=== PATIENT | female | born 1965 | race Caucasian/White ===

== ENCOUNTER 2018-09-13 04:02 | Inpatient (IN) | payer OTHER ==
[~2018-09-13] VITALS: Ht 165.1 cm; Wt 87.1 kg
[2018-09-13 06:03] LABS: PLATELET COUNT 216 x10^3mcL (130-400)
[2018-09-13 06:06] LABS: RED CELL DISTRIBUTION WIDTH 14.6 % (11.5-14.5)
[2018-09-13] MEDS ORDERED: GOOD SENSE ASP325 MG PO (06:06)
[2018-09-13] MEDS ORDERED: NOR10T (06:07)
[2018-09-13] MEDS ORDERED: SOMA350 MG (06:07)
[2018-09-13 06:26] LABS: CALCIUM 8.6 mg/dL (8.5-10.1); CARBON DIOXIDE 25.6 mmol/L (21-32); CHLORIDE SERUM 111 mmol/L (98-107); CREATININE SERUM 0.8 mg/dL (0.6-1.0); GFR1 > 60 mL/min; GLUCOSE SERUM 97 mg/dL (74-106); SODIUM SERUM 143 mmol/L (136-145)
[2018-09-13 06:30] LABS: ALKALINE PHOSPHATASE 83 U/L (46-116); ALT/SGPT 39 U/L (14-59); AST/SGOT 26 U/L (15-37); BILIRUBIN TOTAL 0.33 mg/dL (0.20-1.00); TOTAL PROTEIN, SERUM 6.9 g/dL (6.4-8.2)
[2018-09-13 06:34] LABS: ALBUMIN 3.2 g/dL (3.4-5.0)
[2018-09-13 09:58] VITALS: BP 115/74
[2018-09-13 10:04] LABS: MAGNESIUM 1.8 mg/dL (1.8-2.4)
[2018-09-13 10:16] LABS: FREE T4 1.07 ng/dL (0.76-1.46); FREE THYROXINE INDEX 2.7 ug/dL (1.4-4.5); T3 TOTAL 1.27 ng/mL; T4(THYROXINE) 8.2 ug/dL (4.7-13.3)
[2018-09-13 12:10] VITALS: Ht 165.1 cm; Wt 87.1 kg
[2018-09-13 13:25] VITALS: BP 104/65
[2018-09-13 17:10] VITALS: BP 115/76
[2018-09-13 17:36] LABS: microscopic required? NO
[2018-09-13 17:45] LABS: UA SPECIFIC GRAVITY >=1.030 (1.005-1.035); urine erythrocyte NEGATIVE (NEGATIVE)
[2018-09-13 17:55] LABS: AMPHETAMINE QUAL UR NONE DETECTED (See below)
[2018-09-13 21:33] VITALS: BP 112/74
[2018-09-14 05:27] VITALS: BP 101/71
[2018-09-14 07:55] LABS: BASOPHIL % 0.6 % (0-2); PLATELET COUNT 219 x10^3mcL (130-400)
[2018-09-14 08:38] LABS: CALCIUM 9.1 mg/dL (8.5-10.1); CARBON DIOXIDE 26.8 mmol/L (21-32); CHLORIDE SERUM 109 mmol/L (98-107); GFR1 > 60 mL/min; GLUCOSE SERUM 109 mg/dL (74-106); POTASSIUM SERUM 4.2 mmol/L (3.5-5.1); SODIUM SERUM 140 mmol/L (136-145)
[2018-09-14 09:09] VITALS: BP 118/59
[2018-09-14 09:09] LABS: RED CELL DISTRIBUTION WIDTH 15.1 % (11.5-14.5)
[2018-09-14 12:48] VITALS: BP 139/74
[2018-09-14 16:38] VITALS: BP 131/68
[2018-09-14 20:35] VITALS: BP 125/78
[2018-09-15 05:06] VITALS: BP 124/85
[2018-09-15 06:34] LABS: PLATELET COUNT 231 x10^3mcL (130-400); RED CELL DISTRIBUTION WIDTH 14.5 % (11.5-14.5)
[2018-09-15 07:21] LABS: CALCIUM 8.7 mg/dL (8.5-10.1); CARBON DIOXIDE 26.4 mmol/L (21-32); CHLORIDE SERUM 108 mmol/L (98-107); CREATININE SERUM 0.8 mg/dL (0.6-1.0); GFR1 > 60 mL/min; GLUCOSE SERUM 120 mg/dL (74-106); POTASSIUM SERUM 5.1 mmol/L (3.5-5.1); SODIUM SERUM 141 mmol/L (136-145)
[2018-09-15 08:31] VITALS: BP 128/90
[2018-09-15 12:56] LABS: ATYPICAL LYMPH 1 %; BAND NEUTROPHIL 1 % (0-10); BASOPHIL 0 % (0-2); MONOCYTE 2 % (0-7); SEGMENTED NEUTROPHILS 94 % (37-75)
[2018-09-15 12:57] LABS: PLATELET MORPHOLOGY PLATELETS DECREASED; rbc morphology (normal/abnorm) NORMAL (NORMAL)
[2018-09-15 14:06] VITALS: BP 128/90
== END 2018-09-15 15:24 | disposition home or self-care (01) | DRG 198 ==
LOC: ED 04:02 → DU 07:59
PROVIDERS: Emergency Medicine; Family Medicine
DX: I24.9 Acute ischemic heart disease, unspecified (principal); I27.20 Pulmonary hypertension, unspecified; I42.9 Cardiomyopathy, unspecified; E44.1 Mild protein-calorie malnutrition; E66.01 Morbid (severe) obesity due to excess calories; I36.1 Nonrheumatic tricuspid (valve) insufficiency; K80.20 Calculus of gallbladder without cholecystitis without obstruction; G47.33 Obstructive sleep apnea (adult) (pediatric); J44.9 Chronic obstructive pulmonary disease, unspecified; G89.4 Chronic pain syndrome; F15.21 Other stimulant dependence, in remission; F14.21 Cocaine dependence, in remission; Z96.642 Presence of left artificial hip joint; Z68.34 Body mass index [BMI] 34.0-34.9, adult; F17.210 Nicotine dependence, cigarettes, uncomplicated; Z86.718 Personal history of other venous thrombosis and embolism
CPT/HCPCS: 83880; 84439; 85378; A9500; J1644; J2270; J2785; J2930; Q0163; Q9967

== ENCOUNTER 2018-10-31 21:36 | Emergency (ER) | payer OTHER ==
[~2018-10-31 21:36] MED LIST: GOOD SENSE ASP325 MG PO; NOR10T; SOMA350 MG
== END 2018-10-31 22:59 | disposition left against medical advice (07) ==
LOC: ED 21:36
DX: Z53.21 Procedure and treatment not carried out due to patient leaving prior to being seen by health care provider (principal)

== ENCOUNTER 2018-11-01 12:56 | Emergency (ER) | payer OTHER ==
[~2018-11-01] VITALS: Ht 165.1 cm; Wt 88.0 kg
[2018-11-01 13:12] VITALS: Ht 165.1 cm; Wt 88.0 kg
[2018-11-01 16:16] VITALS: BP 155/73
== END 2018-11-01 16:16 | disposition home or self-care (01) ==
LOC: ED 12:56
DX: S05.02XA Injury of conjunctiva and corneal abrasion without foreign body, left eye, initial encounter (principal); I10 Essential (primary) hypertension; Z98.890 Other specified postprocedural states; Z91.040 Latex allergy status; W50.4XXA Accidental scratch by another person, initial encounter; Y93.89 Activity, other specified; Y92.89 Other specified places as the place of occurrence of the external cause; Y99.8 Other external cause status

== ENCOUNTER 2018-11-08 15:26 | Emergency (ER) | payer OTHER ==
[~2018-11-08] VITALS: Ht 165.1 cm; Wt 86.2 kg
[2018-11-08 15:29] VITALS: Ht 165.1 cm; Wt 86.2 kg
[2018-11-08 16:24] VITALS: BP 140/94
== END 2018-11-08 16:24 | disposition home or self-care (01) ==
LOC: ED 15:26
DX: F10.129 Alcohol abuse with intoxication, unspecified (principal); F17.200 Nicotine dependence, unspecified, uncomplicated; I27.20 Pulmonary hypertension, unspecified; I10 Essential (primary) hypertension; Z71.6 Tobacco abuse counseling; Z98.890 Other specified postprocedural states
CPT/HCPCS: 99406

== ENCOUNTER 2018-12-29 18:55 | Emergency (ER) | payer OTHER | END 2018-12-29 19:55 | disposition left against medical advice (07) | LOC: ED 18:55 | DX: Z53.21 Procedure and treatment not carried out due to patient leaving prior to being seen by health care provider (principal) ==

== ENCOUNTER 2019-09-16 16:36 | Inpatient (IN) | payer MEDICAID ==
[~2019-09-16] VITALS: Ht 167.6 cm; Wt 78.5 kg
[2019-09-16 18:02] LABS: BASOPHIL % 0.8 % (0-2); PLATELET COUNT 187 x10^3mcL (130-400); RED CELL DISTRIBUTION WIDTH 14.5 % (11.5-14.5)
[2019-09-16 18:21] LABS: ALBUMIN 3.7 g/dL (3.4-5.0); ALKALINE PHOSPHATASE 122 U/L (46-116); ALT/SGPT 50 U/L (14-59); AST/SGOT 59 U/L (15-37); BILIRUBIN TOTAL 0.9 mg/dL (0.20-1.00); CALCIUM 8.4 mg/dL (8.5-10.1); CARBON DIOXIDE 23.2 mmol/L (21-32); CHLORIDE SERUM 106 mmol/L (98-107); CREATININE SERUM 0.8 mg/dL (0.6-1.0); GFR1 > 60 mL/min; GLUCOSE SERUM 98 mg/dL (74-106); POTASSIUM SERUM 4.3 mmol/L (3.5-5.1); SODIUM SERUM 141 mmol/L (136-145)
[2019-09-16] MEDS ORDERED: LASIX20 MG (18:47)
[2019-09-16] MEDS ORDERED: [UNRECOGNIZED DRUG - OTHER] PO (18:47)
[2019-09-16] MEDS ORDERED: LISINOPRIL2.5 MG (18:47)
[2019-09-16 20:16] VITALS: BP 160/95
[2019-09-17 04:06] VITALS: BP 122/92
[2019-09-17 09:01] VITALS: BP 129/85
[2019-09-17 12:26] VITALS: BP 129/92
[2019-09-17 16:30] VITALS: BP 129/85
[2019-09-17 20:49] VITALS: BP 115/85
[2019-09-17 21:22] LABS: microscopic required? NO
[2019-09-17 21:27] LABS: urine erythrocyte NEGATIVE (NEGATIVE)
[2019-09-17 21:37] LABS: AMPHETAMINE QUAL UR NONE DETECTED (See below)
[2019-09-18 04:48] VITALS: BP 116/83
[2019-09-18 06:30] LABS: BASOPHIL % 0.8 % (0-2); PLATELET COUNT 165 x10^3mcL (130-400)
[2019-09-18 06:46] LABS: RED CELL DISTRIBUTION WIDTH 14.6 % (11.5-14.5)
[2019-09-18 06:48] LABS: CALCIUM 8.6 mg/dL (8.5-10.1); CARBON DIOXIDE 29.6 mmol/L (21-32); CHOLESTEROL/HDL RATIO 4.3; CREATININE SERUM 1.4 mg/dL (0.6-1.0); MAGNESIUM 1.9 mg/dL (1.8-2.4); PHOSPHOROUS 4.7 mg/dL (2.5-4.9); POTASSIUM SERUM 4.1 mmol/L (3.5-5.1)
[2019-09-18 07:40] VITALS: BP 130/82
[2019-09-18 11:56] VITALS: BP 112/73
[2019-09-18 17:08] VITALS: BP 104/64
[2019-09-18 21:01] VITALS: BP 116/74
[2019-09-18 22:16] VITALS: Ht 167.6 cm; Wt 78.5 kg
[2019-09-19 06:08] VITALS: BP 118/79
[2019-09-19 06:23] LABS: BASOPHIL % 0.4 % (0-2); PLATELET COUNT 160 x10^3mcL (130-400); RED CELL DISTRIBUTION WIDTH 14.3 % (11.5-14.5)
[2019-09-19 07:38] VITALS: BP 120/78
[2019-09-19 08:17] LABS: CALCIUM 8.8 mg/dL (8.5-10.1); CARBON DIOXIDE 29.6 mmol/L (21-32); CREATININE SERUM 1.3 mg/dL (0.6-1.0); MAGNESIUM 2.2 mg/dL (1.8-2.4); PHOSPHOROUS 4.5 mg/dL (2.5-4.9); POTASSIUM SERUM 4.2 mmol/L (3.5-5.1)
[2019-09-19 12:10] VITALS: BP 101/74
[2019-09-19 12:37] VITALS: BP 101/74
[2019-09-19] MEDS ORDERED: LISINOPRIL10 MG PO (14:55)
[2019-09-19] MEDS ORDERED: LASIX40 MG PO (14:56)
[2019-09-19] MEDS ORDERED: METOPROLOL TART25 M1 PO (14:56)
[2019-09-19] MEDS ORDERED: LIPI10 PO (14:57)
[2019-09-19] MEDS ORDERED: BACTRIM DS1 TAB PO (14:58)
[2019-09-19 15:23] VITALS: BP 116/65
[2019-09-19] MEDS ORDERED: NORCO1 TA2 PO (16:19)
== END 2019-09-19 16:11 | disposition home or self-care (01) | DRG 190 ==
LOC: ED 16:36 → DU 18:46
PROVIDERS: Emergency Medicine; ADMIT Internal Medicine
PROC: 0J9Q3ZZ Drainage of Right Foot Subcutaneous Tissue and Fascia, Percutaneous Approach (ICD-10-PCS; principal; 2019-09-17)
DX: I21.A1 Myocardial infarction type 2 (principal); D68.69 Other thrombophilia; I27.20 Pulmonary hypertension, unspecified; I11.0 Hypertensive heart disease with heart failure; I50.813 Acute on chronic right heart failure; I42.9 Cardiomyopathy, unspecified; L02.415 Cutaneous abscess of right lower limb; F10.129 Alcohol abuse with intoxication, unspecified; Y90.0 Blood alcohol level of less than 20 mg/100 ml; R74.0 Nonspecific elevation of levels of transaminase and lactic acid dehydrogenase [LDH]; Z96.642 Presence of left artificial hip joint; Z79.899 Other long term (current) drug therapy; Z68.31 Body mass index [BMI] 31.0-31.9, adult; Z87.891 Personal history of nicotine dependence; Z86.718 Personal history of other venous thrombosis and embolism; Z86.73 Personal history of transient ischemic attack (TIA), and cerebral infarction without residual deficits
CPT/HCPCS: 83880; 90658; G0378; G0480; J0696; J1940; J2001; J2060; J2270; J2405; J2543; J3370; J7040; Q0092; Q9967

== ENCOUNTER 2019-10-12 02:57 | Emergency (ER) | payer OTHER ==
[~2019-10-12] VITALS: Ht 165.1 cm; Wt 81.9 kg
[~2019-10-12 02:57] MED LIST changes: +BACTRIM DS1 TAB PO; +LASIX20 MG; +LASIX40 MG PO; +LIPI10 PO; +LISINOPRIL10 MG PO; +LISINOPRIL2.5 MG; +METOPROLOL TART25 M1 PO; +NORCO1 TA2 PO; +[UNRECOGNIZED DRUG - OTHER] PO
[2019-10-12 03:01] VITALS: Ht 165.1 cm; Wt 81.9 kg
[2019-10-12 03:53] VITALS: BP 114/93
== END 2019-10-12 03:53 | disposition home or self-care (01) ==
LOC: ED 02:57
DX: S05.01XA Injury of conjunctiva and corneal abrasion without foreign body, right eye, initial encounter (principal); Z88.8 Allergy status to other drugs, medicaments and biological substances; Z91.040 Latex allergy status; Z86.73 Personal history of transient ischemic attack (TIA), and cerebral infarction without residual deficits; I10 Essential (primary) hypertension; W22.8XXA Striking against or struck by other objects, initial encounter; Y93.89 Activity, other specified; Y92.89 Other specified places as the place of occurrence of the external cause; Y99.8 Other external cause status

== ENCOUNTER 2020-03-19 17:48 | Emergency (ER) | payer OTHER ==
[~2020-03-19] VITALS: Ht 165.1 cm; Wt 76.7 kg
[2020-03-19 18:03] VITALS: Ht 165.1 cm; Wt 76.7 kg
[2020-03-19 19:46] VITALS: BP 132/76
== END 2020-03-19 19:46 | disposition home or self-care (01) ==
LOC: ED 17:48
DX: M25.471 Effusion, right ankle (principal); I10 Essential (primary) hypertension; Z88.8 Allergy status to other drugs, medicaments and biological substances; Z91.040 Latex allergy status
CPT/HCPCS: Q0092